=== PATIENT | male | born 1955 | race Asian ===

== ENCOUNTER 2020-12-11 06:20 | Day surgery (SDC) | payer MEDICARE, MEDICAID ==
[2020-12-08 17:26] LABS: COVID AG,FIA SOURCE NASOPHARYNGEAL
[~2020-12-11] VITALS: Ht 172.7 cm; Wt 102.3 kg
[~2020-12-11 06:20] MED LIST: SODIUM CHLORIDE 0.9% 1,000 ML ONE
[2020-12-11] MEDS ORDERED: BENZOCAINE 20% 50 MCG/SPRAY 57 GM TP ONE (06:21)
[2020-12-11] MEDS ORDERED: LIDOCAINE 2% 30 ML JELLY TP ONE (06:21)
[2020-12-11] MEDS ORDERED: ALBUTEROL SULFATE 2.5 MG/0.5 ML NEB SOLUTION NEB ONE (06:21)
[2020-12-11] MEDS ORDERED: SODIUM CHLORIDE 0.9% 1,000 ML IV ONE (06:30)
[2020-12-11] MEDS ORDERED: FentaNYL CITRATE PF 100 MCG/2 ML VIAL ONE (07:07)
[2020-12-11] MEDS ORDERED: MIDAZOLAM HCL 5 MG/ML VIAL ONE (07:07)
[2020-12-11 07:22] LABS: GLUCOMETER DEV NAME(LOC) SDS.; GLUCOSE,POINT OF CARE 133 MG/DL (70-110)
[2020-12-11] MEDS ORDERED: MethylPREDNISolone SOD SUCC 125 MG/2 ML VIAL IVP ONE (09:15)
[2020-12-11] MEDS ORDERED: MethylPREDNISolone SOD SUCC 125 MG/2 ML VIAL ONE (09:37)
[2020-12-11] MEDS ORDERED: OXYGEN THERAPY IH SCH (20:00)
== END 2020-12-11 11:05 | disposition home or self-care (01) ==
LOC: SURGERY 06:20
PROVIDERS: ATTEND Internal Medicine Critical Care Medicine
DX: J38.4 Edema of larynx (principal); B37.0 Candidal stomatitis; I10 Essential (primary) hypertension; Z98.890 Other specified postprocedural states; Z79.899 Other long term (current) drug therapy
CPT/HCPCS: 31623; 31624; 71045; 82962; 87015; 87070; 87077; 87101; 87205; 87206; 87220; 87426; 88112; 88184; 88185; 88312; C9803; J2250; J2930; J3010; J7030; 87186; J7613